=== PATIENT | male | born 1960 | race Caucasian/White ===

== ENCOUNTER 2021-10-10 14:26 | Outpatient (CLI) | payer OTHER, SELFPAY ==
[2021-10-10 21:17] LABS: Albumin* 4.4 g/dL (3.3-5.0); Chloride* 102 mmol/L (96-114); Sodium* 139 mmol/L (135-149)
[2021-10-10 21:18] LABS: Potassium* 4.1 mmol/L (3.6-5.1)
[2021-10-10 21:20] LABS: Alanine Aminotransferase* 61 U/L (4-50); Alkaline Phosphatase* 60 U/L (40-150); Aspartate Amino Transferase* 47 U/L (12-35); Bilirubin Total* 0.5 mg/dL (0.1-1.5); Blood Urea Nitrogen* 18 mg/dL (7-30); Carbon Dioxide* 30 mmol/L (20-32); Creatinine* 0.9 mg/dL (0.5-1.5); Estimated Glomerular Filt Rate 97 ml/min; Glucose* 115 mg/dL (60-115); Total Protein* 7.5 g/dL (6.0-8.3)
[2021-10-10 21:47] LABS: PSA Screen* 0.57 ng/mL (0.10-4.00)
== END 2021-10-10 14:27 | disposition home or self-care (01) ==
PROVIDERS: PCP Emergency Medicine; Visit Provider Emergency Medicine
DX: I10 Essential (primary) hypertension (principal); K75.81 Nonalcoholic steatohepatitis (NASH); Z12.5 Encounter for screening for malignant neoplasm of prostate
CPT/HCPCS: 80053; 84153

== ENCOUNTER 2021-12-24 12:00 | Outpatient (CLI) | payer OTHER, SELFPAY ==
[2021-12-24 14:31] LABS: Cholesterol* 165 mg/dL (90-199); Triglycerides* 110 mg/dL (40-149)
[2021-12-24 14:32] LABS: HDL Cholesterol* 45 mg/dL (>=40); LDL Cholesterol Calculated 98 mg/dL (<100)
== END 2021-12-24 12:01 | disposition home or self-care (01) ==
PROVIDERS: PCP Emergency Medicine; Visit Provider Emergency Medicine
DX: E78.5 Hyperlipidemia, unspecified (principal)
CPT/HCPCS: 80061

== ENCOUNTER 2022-08-02 07:00 | Outpatient (CLI) | payer OTHER, SELFPAY ==
--- NOTE | 2022-08-02 07:15 | CRLHL7_ITS ---
For Patients: As a result of the Century Cures Act, medical imaging exams and procedure reports are released immediately into your electronic medical record. You may view this report before your referring provider. If you have questions, please contact your health care provider. Indication: Lump Technique: Grayscale and color Doppler ultrasound exam of the left lateral abdominal wall performed. Comparison: None Findings: There is a circumscribed hyperechoic focus just beneath the skin within the subcutaneous fat measuring 1.0 x 0.5 x 0.8 cm. No abnormal vascularity. Impression: Benign subcutaneous lipoma measuring 1 cm. Dictated by Aramis Andersen MD @ 08/03/2022 6:21:28 AM (Electronically Signed)
== END 2022-08-02 07:01 | disposition home or self-care (01) ==
PROVIDERS: PCP Emergency Medicine; Visit Provider Emergency Medicine
DX: R19.00 Intra-abdominal and pelvic swelling, mass and lump, unspecified site (principal); D17.1 Benign lipomatous neoplasm of skin and subcutaneous tissue of trunk
CPT/HCPCS: 76705

== ENCOUNTER 2023-02-26 09:15 | Outpatient (CLI) | payer OTHER, SELFPAY | END 2023-02-26 09:16 | disposition home or self-care (01) | LOC: NFLDREF 03-05 16:08 | PROVIDERS: PCP Emergency Medicine; Referring Provider Emergency Medicine; Visit Provider Emergency Medicine | DX: Z00.00 Encounter for general adult medical examination without abnormal findings (principal); R73.03 Prediabetes; I10 Essential (primary) hypertension; E78.5 Hyperlipidemia, unspecified; N52.9 Male erectile dysfunction, unspecified; R06.02 Shortness of breath; E66.9 Obesity, unspecified; Z12.5 Encounter for screening for malignant neoplasm of prostate | CPT/HCPCS: 80053; 80061; G0103 ==

== ENCOUNTER 2023-03-27 12:51 | Outpatient (CLI) | payer OTHER, SELFPAY ==
[2023-03-27] MEDS: PERFLUTREN LIPID MICROSPHERES 2 ML VIAL IV (13:35)
[2023-03-27 14:20] VITALS: BP 138/79; PULSE 99
--- NOTE | 2023-03-27 15:05 | W.PM.STED ---
Stress Test Note Date Date of test: 03/27/23 Providers Primary care provider: Brunilda Servin Stress test physician: Hussein Gee Stress Test Note Stress test ordered: Stress Echo Indication for test: Dyspnea Stress test medicine: Definity Results discussion: Patient is a very nice 63-year-old gentleman who presents for the above test after discussion the risks benefits side effects he would like to proceed, cardiac stress test medical history form is reviewed entirely. Pretest EKG shows normal sinus rhythm, with a ventricular rate of 73, BP 148/84, there is some diffuse ST wave flattening noted inferiorly and laterally. That is nonspecific. Standard Terence protocol is employed over a time course 7 minutes 5 seconds, he chipped a metabolic equivalent of 8.5 Mets with a maximum heart rate of 150 which is 112% of the maximum. Maximum blood pressure was 194/74. He had no complaints of chest pain shortness of breath, there is no specific changes suggestive of ischemia. There were no dysrhythmias. Impression: Negative electrographic portion of stress echo Follow up suggested: Await echo images clinical correlation with these will be needed, echo be read by Cardiology. Patient this testing facility in good condition, there were no complications. Conditioning was felt to be moderate
== END 2023-03-27 12:52 | disposition home or self-care (01) ==
LOC: STRESS 12:51
PROVIDERS: PCP Emergency Medicine; Visit Provider Family Medicine
DX: R06.02 Shortness of breath (principal)
CPT/HCPCS: 93016; 93325; 93351; Q9957

== ENCOUNTER 2023-11-28 08:35 | Outpatient (CLI) | payer OTHER, SELFPAY | END 2023-11-28 08:36 | disposition home or self-care (01) | LOC: NFLDREF 14:26 | PROVIDERS: PCP Emergency Medicine; Referring Provider Emergency Medicine; Visit Provider Emergency Medicine | DX: R74.01 Elevation of levels of liver transaminase levels (principal); R51.9 Headache, unspecified; E78.2 Mixed hyperlipidemia; E66.9 Obesity, unspecified; R10.9 Unspecified abdominal pain | CPT/HCPCS: 80053; 80061 ==

== ENCOUNTER 2024-02-04 09:43 | Outpatient (CLI) | payer OTHER, SELFPAY | END 2024-02-04 09:44 | disposition home or self-care (01) | LOC: RAD 09:43 | PROVIDERS: PCP Emergency Medicine; Visit Provider Emergency Medicine | DX: R42 Dizziness and giddiness (principal) | CPT/HCPCS: 93306 ==

== ENCOUNTER 2024-08-06 08:42 | Outpatient (CLI) | payer OTHER, SELFPAY | END 2024-08-06 08:43 | disposition home or self-care (01) | LOC: NFLDREF 08-09 20:42 | PROVIDERS: PCP Emergency Medicine; Referring Provider Emergency Medicine; Visit Provider Emergency Medicine | DX: I10 Essential (primary) hypertension (principal); E78.2 Mixed hyperlipidemia; G44.229 Chronic tension-type headache, not intractable; Z12.5 Encounter for screening for malignant neoplasm of prostate | CPT/HCPCS: 80053; 80061; G0103 ==